=== PATIENT | male | born 1955 | race Caucasian/White ===

== ENCOUNTER 2021-10-30 06:40 | Day surgery (SDC) | payer MEDICARE, OTHER ==
[~2021-10-30] VITALS: Ht 172.7 cm; Wt 89.5 kg
[~2021-10-30 06:40] MED LIST: ATOR20TA86 PO; METF-1211 PO; NICO-650 TP; PRED-729 PO; PYRI60TA PO; RIVA20TA PO; SODIUM CHLORIDE 0.9% 1,000 ML ONE
[2021-10-30] MEDS ORDERED: SODIUM CHLORIDE 0.9% 1,000 ML IV ONE (07:00)
[2021-10-30 07:18] LABS: COVID AG,FIA SOURCE NASAL SWAB
[2021-10-30] MEDS ORDERED: PROPOFOL 1% 20 ML VIAL IVP ONE (12:00)
[2021-10-30] MEDS ORDERED: LIDOCAINE/PF 2% 5 ML VIAL IM ONE (12:00)
[2021-10-30 13:06] LABS: GLUCOMETER DEV NAME(LOC) SDS.; GLUCOSE,POINT OF CARE 211 MG/DL (70-110)
[2021-10-30] MEDS ORDERED: OXYGEN THERAPY IH SCH (20:00)
== END 2021-10-30 10:45 | disposition home or self-care (01) ==
LOC: SURGERY 06:40
PROVIDERS: ATTEND Specialist
DX: K94.23 Gastrostomy malfunction (principal); F17.210 Nicotine dependence, cigarettes, uncomplicated; G70.00 Myasthenia gravis without (acute) exacerbation; E11.9 Type 2 diabetes mellitus without complications; B37.81 Candidal esophagitis; I10 Essential (primary) hypertension; Z79.899 Other long term (current) drug therapy; Z98.890 Other specified postprocedural states
CPT/HCPCS: 43999; 82962; 87426; C9803; J2704; J3490; J7030